=== PATIENT | female | born 1980 | race Caucasian/White ===

== ENCOUNTER 2020-07-05 00:19 | Emergency (ER) | payer BC, OTHER ==
[2020-07-05] MEDS: Proparacaine 0.5% Ophth Soln 15 ML Bottle EYERT PRN (00:50)
--- NOTE | 2020-07-05 00:52 | EDM.PDOC ---
ED HPI GENERAL MEDICAL PROBLEM - General Chief Complaint: ENT Problem Stated Complaint: Right eye ?infection, pupil dilated Time Seen by Provider: 07/05/20 00:30 Source of Information: Reports: Patient History Limitations: Reports: No Limitations - History of Present Illness INITIAL COMMENTS - FREE TEXT/NARRATIVE: Patient comes in the emergency department complaint of right eye irritation. Patient states that she woke up this morning with right eye irritation it was red and had large amount of green goop/discharge. She states that she has been cleaning her eye most of the day of the screen discharge. She states throughout the day she had started using Visine drops to help with the irritation. She states that she did notice that the Visine drops was making her eye appear more irritated. As the evening progressed she started using more the Visine drops and has noticed in the past 3 to 4 hours that her pupil has dilated and the irritation continues. Patient also states that she has large amount of green discharge. She has noticed with her eye dilating that she does not have blurred vision out of that eye. She states it does get better if she places a wash cloth over the eye and gets worse looking into the light. She denies any headache, intraocular pressure, severe right-sided face pain, difficulty swallowing, facial swelling, fever, nausea, vomiting, chest pain, shortness of breath, numbness or tingling, chills, or peripheral edema. Patient states she is been relatively healthy. Patient states that she does have a longstanding history of allergies and states that they have been excessively elevated the last few days. She also has had a history of conjunctivitis in the past.Patient denies of any other concerns or complaints tonight. Onset: Gradual Right eye Pain Score (Numeric/FACES): 5 - Related Data Allergies Allergy/AdvReac Type Severity Reaction Status Date / Time No Known Allergies Allergy Verified 07/05/20 00:43 Home Meds: Home Meds . [No Known Home Meds] 07/05/20 [History] ED ROS GENERAL - Review of Systems Review Of Systems: Comprehensive ROS is negative, except as noted in HPI. Constitutional: Reports: No Symptoms Respiratory: Reports: No Symptoms Cardiovascular: Reports: No Symptoms Endocrine: Reports: No Symptoms GI/Abdominal: Reports: No Symptoms : Reports: No Symptoms Musculoskeletal: Reports: No Symptoms Skin: Reports: No Symptoms Neurological: Reports: No Symptoms Psychiatric: Reports: No Symptoms Hematologic/Lymphatic: Reports: No Symptoms Immunologic: Reports: No Symptoms ED EXAM, GENERAL - Physical Exam Exam: See Below Exam Limited By: No Limitations General Appearance: Alert, WD/WN, No Apparent Distress Eye Exam: Right Eye: Abnormal Pupil (dilated 5), Vision Changes (blurried vision ), Other (mod amount green matte noted. redness noted on sclera), Bilateral Eye: EOMI, PERRL Ears: Normal External Exam, Normal Canal, Hearing Grossly Normal, Normal TMs Ear Exam: Bilateral Ear: Auricle Normal, Canal Normal, TM normal Nose: Normal Inspection, Normal Mucosa, No Blood Throat/Mouth: Normal Inspection, Normal Lips, Normal Teeth, Normal Gums, Normal Oropharynx, Normal Voice, No Airway Compromise Head: Atraumatic, Normocephalic Neck: Normal Inspection, Supple, Non-Tender, Full Range of Motion Respiratory/Chest: No Respiratory Distress, No Accessory Muscle Use, Chest Non- Tender Cardiovascular: Normal Peripheral Pulses, Regular Rate, Rhythm, No Edema (Female) Exam: Deferred Rectal (Female) Exam: Deferred Back Exam: Normal Inspection, Full Range of Motion, NT Extremities: Normal Inspection, Normal Range of Motion, Non-Tender, Normal Capillary Refill, No Pedal Edema Neurological: Alert, Oriented, CN II-XII Intact, Normal Cognition, Normal Gait Psychiatric: Normal Affect, Normal Mood Skin Exam: Warm, Dry, Intact, Normal Color, No Rash Lymphatic: No Adenopathy Course - Vital Signs Last Recorded V/S: Last Vital Signs Temp 36.6 C 07/05/20 00:19 Pulse 79 07/05/20 00:19 Resp 16 07/05/20 00:19 BP 169/100 H 07/05/20 00:19 Pulse Ox - Orders/Labs/Meds Orders: Active Orders 24 hr Category Date Time Status Proparacaine [Proparacaine 0.5% Ophth Soln] Med 07/05/20 00:43 Ordered 1 ml EYERT ASDIRECTED PRN Medication Orders Proparacaine HCl (Proparacaine 0.5% Ophth Soln) 1 ml EYERT ASDIRECTED PRN PRN Reason: Other Meds: Medications Generic Name Dose Route Start Last Admin Trade Name Freq PRN Reason Stop Dose Admin Proparacaine HCl 1 ml 07/05/20 00:43 Proparacaine 0.5% Ophth Soln EYERT ASDIRECTED PRN Other Discontinued Medications Generic Name Dose Route Start Last Admin Trade Name Gloria PRN Reason Stop Dose Admin Fluorescein Sodium 1 mg 07/05/20 00:43 Ful-Maritza EYERT 07/05/20 00:44 ONETIME ONE Departure - Departure Time of Disposition: 00:55 Disposition: Home, Self-Care 01 Condition: Good Clinical Impression: Acute allergic conjunctivitis of right eye, Dilated pupil - Discharge Information *PRESCRIPTION DRUG MONITORING PROGRAM REVIEWED*: Not Applicable *COPY OF PRESCRIPTION DRUG MONITORING REPORT IN PATIENT HAMLET: Not Applicable Instructions: Allergic Conjunctivitis, Adult, Tetrahydrozoline ophthalmic drops, Polymyxin B; Trimethoprim eye drops, solution Referrals: PCP,None [Primary Care Provider] - Additional Instructions: 1. rest 2. use Polytrim in effected eye 3 times a day for 7 days 3. Continue all at home medications 4. Activity and diet as tolerated 5. Can take over the counter Tylenol for any pain or discomfort 6. Follow up with PCP if symptoms continue, return, or progress 7. Call with any questions or concerns 8. Reduce the use of the Visine for side effects of the medication when used in excess can cause: further eye irritation, dilated pupils, blurred vision or sensitivity to light. If eye is irritated best to use saline eye drops only. 9. Follow up tomorrow if symptoms continue or return if worsen. Sepsis Event Note (ED) - Evaluation Sepsis Screening Result: No Definite Risk - Focused Exam Vital Signs: Vital Signs Temp Pulse Resp BP 07/05/20 00:19 36.6 C 79 16 169/100 H - My Orders Last 24 Hours: My Active Orders 07/05/20 00:43 Proparacaine [Proparacaine 0.5% Ophth Soln] 1 ml EYERT ASDIRECTED PRN - Assessment/Plan Last 24 Hours: My Active Orders 07/05/20 00:43 Proparacaine [Proparacaine 0.5% Ophth Soln] 1 ml EYERT ASDIRECTED PRN Assessment:: 1. allergic conjunctivitis 2. dilated pupil due to over medication use Plan: 1. Proparacaine drop to the eye for pain 2. Fluorecin strip with saline to the eye for examination 3. Florescent lamp examination 4. Polytrim drops applied and sent home with the patient to use for the next 7 days tid 5. Patient and nursing staff was updated regarding the plan of care 6. Education provided the patient regarding activity, diet, rest, [id number] medication modalities, and follow-up care was provided 7. Patient and family are agreeable to the above plan of care 8. All questions and concerns were addressed with the patient and family prior to discharge
[2020-07-05] MEDS: Fluorescein 1 MG Ophth Strip EYERT ONE (00:55)
[2020-07-05] MEDS: Polymyxin B/Trimethoprim 10 ML Bottle EYERT ONE (01:05)
== END 2020-07-05 01:14 | disposition home or self-care (01) ==
LOC: VM.ED 00:19
DX: H10.11 Acute atopic conjunctivitis, right eye (principal); H57.04 Mydriasis
CPT/HCPCS: 99283; A9270-GY